=== PATIENT | male | born 1965 | race Caucasian/White ===

== ENCOUNTER 2021-04-15 22:35 | Emergency (ER) | payer OTHER ==
[~2021-04-15] VITALS: Ht 180.3 cm; Wt 88.5 kg
[2021-04-16] MEDS ORDERED: AUGMENTIN 875-1 EACH PO (01:06)
[2021-04-16] MEDS ORDERED: MOBIC7.5 MG PO (01:07)
[2021-04-16 01:21] VITALS: BP 120/72
== END 2021-04-16 01:21 | disposition home or self-care (01) ==
LOC: ER 22:35
DX: S68.621A Partial traumatic transphalangeal amputation of left index finger, initial encounter (principal); Z98.890 Other specified postprocedural states; W54.0XXA Bitten by dog, initial encounter; Y93.89 Activity, other specified; Y92.89 Other specified places as the place of occurrence of the external cause; Y99.9 Unspecified external cause status